=== PATIENT | male | born 1945 | race Caucasian/White ===

== ENCOUNTER → 2017-09-07 09:15 | Outpatient (CLI) | payer MEDICARE, OTHER, SELFPAY ==
--- NOTE | 2017-09-07 09:19 | RAD_ITS ---
STUDY: X-RAY - ESOPHAGUS (BARIUM SWALLOW) WITH FLUOROSCOPY REASON FOR EXAM: Male, 71 years old. 3-4 year history of dysphagia. TECHNIQUE: 18 view(s) of the esophagus were obtained following swallowing of barium. FLUOROSCOPY TIME (if supplied): (0:32) minutes/seconds COMPARISON: None. FINDINGS: There is no demonstrated esophageal foreign body. There is no demonstrated stricture or mucosal abnormality. Normal gastroesophageal junction, without a demonstrated hiatal hernia. The patient ingested a 12 mm tablet of barium without any difficulty. Normal visualized aortic arch and descending thoracic aorta. Calcified left hilar lymph nodes. Normal visualized osseous structures of the thorax. RAD/Esophagus Only IMPRESSION: Normal plain film x-ray examination (barium swallow) of the esophagus. Electronically Signed: Keith Rayo MD at 10:45 EST Tel [phone], Service support ,
== END ==
PROVIDERS: Family Provider Family Medicine; PCP Family Medicine; Visit Provider Family Medicine
DX: R13.10 Dysphagia, unspecified (principal)
CPT/HCPCS: 74220

== ENCOUNTER → 2018-02-26 09:11 | Outpatient (CLI) | payer MEDICARE, OTHER, SELFPAY ==
[2018-02-26 12:00] LABS: Anion Gap 8 (5-15); BUN 31 mg/dL (7-18); BUN/Creat Ratio 20.9 RATIO (10-20); Chloride 109 mmol/L (98-107); Cholesterol 178 mg/dL (200); Creatinine, Serum 1.48 mg/dL (0.70-1.30); EST Glomerular Filtration Rate 50 mL/min (>60); Est Glom Filt Rate - Afr Amer 60 mL/min (>60); Glucose 120 mg/dL (74-106); High Density Lipoprotein 29 mg/dL; Potassium 5.1 mmol/L (3.5-5.1); Sodium Level 141 mmol/L (136-145); Triglycerides 180 mg/dL; Very Low Density Lipoprotein 36 mg/dL (5-40)
[2018-02-26 12:04] LABS: Hemoglobin A1c 7.4 % (4.2-6.3)
== END ==
PROVIDERS: Family Provider Family Medicine; PCP Family Medicine; Visit Provider Family Medicine
DX: E78.5 Hyperlipidemia, unspecified (principal); I10 Essential (primary) hypertension; E11.9 Type 2 diabetes mellitus without complications
CPT/HCPCS: 36415; 80048; 80061; 83036

== ENCOUNTER → 2018-03-11 08:28 | Outpatient (CLI) | payer MEDICARE, OTHER, SELFPAY ==
--- NOTE | 2018-03-11 08:29 | RAD_ITS ---
STUDY: X-RAY - ESOPHAGUS (BARIUM SWALLOW) WITH FLUOROSCOPY REASON FOR EXAM: Male, 72 years old. Dysphagia for liquids. TECHNIQUE: 22 view(s) of the esophagus were obtained following swallowing of barium. FLUOROSCOPY TIME (if supplied): (0:46) minutes/seconds COMPARISON: None. FINDINGS: There is no demonstrated esophageal foreign body. There is concentric narrowing of the distal esophagus at the gastroesophageal junction. The 12 mm tablet of barium is trapped at that site. There is proximal esophageal dilatation. Endoscopy is recommended for further evaluation. There is atherosclerotic calcification of the aortic arch with tortuosity of the descending aorta. Calcification of the mitral valve annulus and hilar lymph nodes. There are diffuse degenerative changes of the visualized thoracic spine. RAD/Esophagus Only IMPRESSION: Concentric narrowing of the distal esophagus at the gastroesophageal junction with trapping of the 12 mm tablet of barium. Endoscopy is recommended for further evaluation. Electronically Signed: Keith Rayo MD at 8:48 EDT Tel [phone], Service support ,
== END ==
PROVIDERS: Family Provider Family Medicine; PCP Family Medicine; Visit Provider Family Medicine
DX: K22.8 Other specified diseases of esophagus (principal); R13.10 Dysphagia, unspecified
CPT/HCPCS: 74220

== ENCOUNTER → 2018-09-05 08:41 | Outpatient (CLI) | payer MEDICARE, OTHER, SELFPAY ==
[2018-09-05 11:22] LABS: Anion Gap 9 (5-15); BUN 38 mg/dL (7-18); BUN/Creat Ratio 24.4 RATIO (10-20); Calcium,Total 9.2 mg/dL (8.5-10.1); Chloride 109 mmol/L (98-107); Cholesterol 203 mg/dL (200); Creatinine, Serum 1.56 mg/dL (0.70-1.30); EST Glomerular Filtration Rate 47 mL/min (>60); Est Glom Filt Rate - Afr Amer 57 mL/min (>60); Glucose 151 mg/dL (74-106); High Density Lipoprotein 30 mg/dL; PSA,Total - Annual Screen 1.14 ng/mL (0.00-4.00); Potassium 4.9 mmol/L (3.5-5.1); Sodium Level 142 mmol/L (136-145); Triglycerides 133 mg/dL; Very Low Density Lipoprotein 27 mg/dL (5-40)
== END ==
PROVIDERS: Family Provider Family Medicine; PCP Family Medicine; Visit Provider Family Medicine
DX: E11.22 Type 2 diabetes mellitus with diabetic chronic kidney disease (principal); N18.3 Chronic kidney disease, stage 3 (moderate); Z12.5 Encounter for screening for malignant neoplasm of prostate
CPT/HCPCS: 36415; 80048; 80061; 83036; 84153; G0103

== ENCOUNTER → 2019-01-02 09:46 | Outpatient (CLI) | payer MEDICARE, OTHER, SELFPAY ==
[2019-01-02 18:39] LABS: Hemoglobin A1c 7.5 % (4.2-6.3)
[2019-01-02 19:03] LABS: Anion Gap 5 (5-15); BUN 33 mg/dL (7-18); BUN/Creat Ratio 22.6 RATIO (10-20); Calcium,Total 9.1 mg/dL (8.5-10.1); Chloride 112 mmol/L (98-107); Cholesterol 128 mg/dL (200); Creatinine, Serum 1.46 mg/dL (0.70-1.30); EST Glomerular Filtration Rate 51 mL/min (>60); Est Glom Filt Rate - Afr Amer 61 mL/min (>60); Glucose 104 mg/dL (74-106); High Density Lipoprotein 30 mg/dL; Potassium 4.7 mmol/L (3.5-5.1); Sodium Level 143 mmol/L (136-145); Triglycerides 133 mg/dL; Very Low Density Lipoprotein 27 mg/dL (5-40)
== END ==
PROVIDERS: Family Provider Family Medicine; PCP Family Medicine; Referring Provider Family Medicine; Visit Provider Family Medicine
DX: I10 Essential (primary) hypertension (principal); E11.9 Type 2 diabetes mellitus without complications; E78.5 Hyperlipidemia, unspecified
CPT/HCPCS: 36415; 80048; 80061; 83036

== ENCOUNTER → 2019-06-23 10:40 | Outpatient (CLI) | payer MEDICARE, OTHER, SELFPAY ==
[2019-06-23 13:12] LABS: Anion Gap 7 (5-15); BUN 25 mg/dL (7-18); BUN/Creat Ratio 19.2 RATIO (10-20); Calcium,Total 9.4 mg/dL (8.5-10.1); Chloride 106 mmol/L (98-107); Cholesterol 154 mg/dL (200); EST Glomerular Filtration Rate 58 mL/min (>60); Est Glom Filt Rate - Afr Amer 70 mL/min (>60); Glucose 125 mg/dL (74-106); High Density Lipoprotein 32 mg/dL; Potassium 5.2 mmol/L (3.5-5.1); Sodium Level 141 mmol/L (136-145); Triglycerides 125 mg/dL; Very Low Density Lipoprotein 25 mg/dL (5-40)
[2019-06-23 13:14] LABS: Hemoglobin A1c 7.4 % (4.2-6.3)
== END ==
PROVIDERS: Family Medicine; Family Provider Family Medicine; PCP Family Medicine; Referring Provider Family Medicine; Visit Provider Family Medicine
DX: I10 Essential (primary) hypertension (principal); E11.9 Type 2 diabetes mellitus without complications; E78.5 Hyperlipidemia, unspecified
CPT/HCPCS: 36415; 80048; 80061; 83036

== ENCOUNTER → 2019-07-17 09:45 | Outpatient (CLI) | payer MEDICARE, OTHER, SELFPAY ==
--- NOTE | 2019-07-17 09:50 | RAD_ITS ---
STUDY: X-RAY - LEFT FOOT CLINICAL: Male, 73 years old. Bruising following a twisting injury. TECHNIQUE: 3 view(s) of the foot. COMPARISON: None. FINDINGS: There is a small plantar calcaneal spur. I suspect a nondisplaced avulsion fracture of the posterior aspect of the navicular bone. Normal metatarsi. Normal metatarsophalangeal joint of the great toe. Normal tibial and fibular sesamoid bones. Normal interphalangeal joint of the great toe. Normal phalanges of the great toe. Normal second through fifth metatarsophalangeal joints. Normal interphalangeal joints and phalanges of the lesser toes. Mild soft tissue swelling. RAD/Foot min 3 Views IMPRESSION: Mild soft tissue swelling. I suspect a nondisplaced avulsion fracture of the superior aspect of the navicular bone. Small plantar spur. Electronically Signed: Keith Rayo, at 11:41 EST , Service support ,
--- NOTE | 2019-07-17 09:50 | RAD_ITS ---
STUDY: X-RAY - LEFT ANKLE REASON FOR EXAM: Male, 73 years old. Pain and swelling following injury. TECHNIQUE: 3 view(s) of the ankle. COMPARISON: None. FINDINGS: Normal visualized distal tibia and fibula. Normal medial and lateral malleoli. Normal tibiotalar articulation and ankle mortise. Small plantar spur. The visualized subtalar, talonavicular, calcaneocuboid and tarsal articulations are normal. Mild soft tissue swelling. RAD/Ankle min 3 Views IMPRESSION: Mild soft tissue swelling. Small plantar spur. Electronically Signed: Keith Rayo, at 11:38 EST , Service support ,
== END ==
PROVIDERS: Family Provider Family Medicine; PCP Family Medicine; Referring Provider Family Medicine; Visit Provider Family Medicine
DX: S99.912A Unspecified injury of left ankle, initial encounter (principal)
CPT/HCPCS: 73610; 73630

== ENCOUNTER → 2020-01-27 09:09 | Outpatient (CLI) | payer MEDICARE, OTHER, SELFPAY ==
[2020-01-27 10:28] LABS: Hemoglobin A1c 6.8 % (3.8-5.6)
[2020-01-27 10:37] LABS: Anion Gap 8 (5-15); BUN 39 mg/dL (7-18); BUN/Creat Ratio 29.1 RATIO (10-20); Calcium,Total 9.3 mg/dL (8.5-10.1); Chloride 111 mmol/L (98-107); Creatinine, Serum 1.34 mg/dL (0.70-1.30); EST Glomerular Filtration Rate 56 mL/min (>60); Est Glom Filt Rate - Afr Amer 67 mL/min (>60); Glucose 118 mg/dL (74-106); Potassium 5.5 mmol/L (3.5-5.1); Sodium Level 142 mmol/L (136-145)
[2020-01-27 10:46] LABS: Microalbumin:Creatinine Ratio 5.9 mg/g CRE (<30 mg/g CRE)
== END ==
PROVIDERS: PCP Family Medicine; Referring Provider Family Medicine; Visit Provider Family Medicine
DX: E11.9 Type 2 diabetes mellitus without complications (principal)
CPT/HCPCS: 36415; 80048; 82043; 82570; 83036

== ENCOUNTER → 2020-06-10 08:20 | Outpatient (CLI) | payer MEDICARE, OTHER, SELFPAY ==
[2020-06-10 10:20] LABS: AST(SGOT) 18 U/L (15-37); Alanine Aminotransfer ALT/SGPT 26 U/L (16-61); Albumin, Serum 3.7 g/dL (3.2-5.0); Alkaline Phosphatase 72 U/L (45-117); Anion Gap 7 (5-15); BUN 32 mg/dL (7-18); BUN/Creat Ratio 21.2 RATIO (10-20); Chloride 109 mmol/L (98-107); Cholesterol 141 mg/dL (200); Creatinine, Serum 1.51 mg/dL (0.70-1.30); EST Glomerular Filtration Rate 48 mL/min (>60); Est Glom Filt Rate - Afr Amer 59 mL/min (>60); Globulin 3.6 g/dL (2.2-4.2); Glucose 135 mg/dL (74-106); Hemoglobin A1c 6.6 % (3.8-5.6); High Density Lipoprotein 32 mg/dL; PSA,Total - Annual Screen 1.19 ng/mL (0.00-4.00); Potassium 4.9 mmol/L (3.5-5.1); Protein, Total 7.3 g/dL (6.4-8.2); Sodium Level 141 mmol/L (136-145); Triglycerides 150 mg/dL; Very Low Density Lipoprotein 30 mg/dL (5-40)
[2020-06-10 10:23] LABS: Vitamin B12 304 pg/mL (211-911)
== END ==
PROVIDERS: PCP Family Medicine; Referring Provider Family Medicine; Visit Provider Family Medicine
DX: I10 Essential (primary) hypertension (principal); E11.21 Type 2 diabetes mellitus with diabetic nephropathy; E11.40 Type 2 diabetes mellitus with diabetic neuropathy, unspecified; Z12.5 Encounter for screening for malignant neoplasm of prostate
CPT/HCPCS: 36415; 80053; 80061; 82607; 83036; 84153; G0103

== ENCOUNTER → 2021-04-07 16:50 | Outpatient (CLI) | payer MEDICARE, OTHER, SELFPAY | PROVIDERS: PCP Family Medicine | DX: Z20.822 Contact with and (suspected) exposure to COVID-19 (principal) | CPT/HCPCS: 87635; U0005; U0003 ==

== ENCOUNTER → 2021-06-28 08:55 | Outpatient (CLI) | payer MEDICARE, OTHER, SELFPAY ==
[2021-06-28 09:55] LABS: Absolute Neutrophil Count 3.1 X10^3/uL (2.0-7.7); Basophil# 0.03 X10^3/uL; Basophil% 0.6 % (0-1); Eosinophil# 0.14 X10^3/uL; Hematocrit 39.1 % (40-54); Hemoglobin 12.3 g/dL (13.0-16.5); Lymphocyte % 21.3 % (19-41); Mean Corp Hgb Conc 31.5 g/dL (32-36); Mean Corpuscular Hgb 27.2 pg (27.0-32.0); Mean Corpuscular Volume 86.5 fL (80-94); Mean Platelet Vol. 10.5 fl (6.2-12.0); Monocyte# 0.44 X10^3/uL; Monocyte% 9.4 % (0-10); NRBC Flagged by Analyzer 0 % (0-5); Neutrophil # 3.06 X10^3/uL (2.7-7.7); Neutrophil % 65.1 % (47-70); Platelet Count 212 K/mm3 (150-450); RBC Distribution Width CV 14.4 % (11.6-14.6); RBC Distribution Width SD 45.7 fl (35.1-43.9); Red Blood Count 4.52 M/mm3 (4.6-6.2); White Blood Count 4.7 K/mm3 (4.4-11.0)
[2021-06-28 10:14] LABS: Microalbumin,Random Urine 6.5 mg/L (NO RANGE EST.); Microalbumin:Creatinine Ratio 6.3 mg/g CRE (<30 mg/g CRE)
[2021-06-28 10:16] LABS: Hemoglobin A1c 6.6 % (3.8-5.6)
[2021-06-28 10:19] LABS: Vitamin B12 258 pg/mL (211-911)
[2021-06-28 10:35] LABS: ALB/GLOB Ratio 0.8 RATIO (0.9-2.4); AST(SGOT) 15 U/L (15-37); Alanine Aminotransfer ALT/SGPT 23 U/L (16-61); Albumin, Serum 3.2 g/dL (3.2-5.0); Alkaline Phosphatase 66 U/L (45-117); Anion Gap 4 (5-15); BUN 33 mg/dL (7-18); BUN/Creat Ratio 24.4 RATIO (10-20); Calcium,Total 8.7 mg/dL (8.5-10.1); Chloride 112 mmol/L (98-107); Cholesterol 150 mg/dL (200); Creatinine, Serum 1.35 mg/dL (0.70-1.30); EST Glomerular Filtration Rate 55 mL/min (>60); Est Glom Filt Rate - Afr Amer 67 mL/min (>60); Glucose 129 mg/dL (74-106); High Density Lipoprotein 31 mg/dL; PSA,Total - Annual Screen 1.27 ng/mL (0.00-4.00); Potassium 4.7 mmol/L (3.5-5.1); Protein, Total 7.2 g/dL (6.4-8.2); Sodium Level 141 mmol/L (136-145); Thyroid Stim Hormone (TSH) 2.41 uIU/mL (0.358-3.74); Triglycerides 78 mg/dL; Very Low Density Lipoprotein 16 mg/dL (5-40)
== END ==
PROVIDERS: PCP Nurse Practitioner Family; Referring Provider Nurse Practitioner Family; Visit Provider Nurse Practitioner Family
DX: E11.40 Type 2 diabetes mellitus with diabetic neuropathy, unspecified (principal); E11.21 Type 2 diabetes mellitus with diabetic nephropathy; Z12.5 Encounter for screening for malignant neoplasm of prostate
CPT/HCPCS: 36415; 80053; 80061; 82043; 82570; 82607; 83036; 84153; 84443; 85025; G0103

== ENCOUNTER 2021-12-27 11:41 | Inpatient (IN) | payer MEDICARE, OTHER, SELFPAY ==
[2021-12-27] VITALS (8 sets, daily range): BP systolic 136–158; BP diastolic 57–69; PULSE 62–82; RESP 12–18; TEMP 36.5–37.1; O2SAT 96–99; BMI 26.7; BMI 27.2
--- NOTE | 2021-12-27 12:19 | EKG12_ITS ---
Test Reason : ABNL LABS Blood Pressure : / mmHG Vent. Rate : 060 BPM Atrial Rate : 060 BPM P-R Int : 276 ms QRS Dur : 100 ms QT Int : 368 ms P-R-T Axes : 031 -41 015 degrees QTc Int : 368 ms Sinus rhythm with sinus arrhythmia with 1st degree A-V block Left axis deviation Inferior infarct , age undetermined Abnormal ECG Confirmed by CONNIE CHURCHILL, MIKI ([id number]), editor trade journal RAOUL RACHEL ([id number]) on 12/28/2021 10:54:04 AM Referred By: MARIAH Confirmed By:MIKI ROSALES MD
--- NOTE | 2021-12-27 12:25 | EX.ED.DYSGE1 ---
HPI History of Present Illness Chief Complaint: Abn Labs Informant: patient Onset/Context/Timing Onset: Today Narrative Narrative: Patient presents secondary to abnormal labs. Patient went to get routine lab work drawn for PCPs appointment next week. He received a phone call that his potassium was elevated and he should go to the emergency room. He denies any complaint at this time. does state he had some nausea and vomiting last week but that seems to be resolved. On review of records BMP obtained reveals a potassium of 6.5. His creatinine is bumped slightly to 1.85 with a baseline around 1.3-1.4. [facility] Medical History Diabetes GERD (gastroesophageal reflux disease) HLD (hyperlipidemia) HTN (hypertension) Home Medications amlodipine 12/27/21 [History Last Taken Unknown] gabapentin 12/27/21 [History Last Taken Unknown] glimepiride mg 12/27/21 [History Last Taken Unknown] isosorbide dinitrate mg 12/27/21 [History Last Taken Unknown] linagliptin-metformin [Jentadueto] tab 12/27/21 [History Last Taken Unknown] lisinopril 12/27/21 [History Last Taken Unknown] omeprazole 12/27/21 [History Last Taken Unknown] Allergy/AdvReac Type Severity Reaction Status Date / Time No Known Allergies Allergy Verified 12/27/21 11:44 Social History Smoking Status: Never smoker ROS ROS ED Constitutional Constitutional ED: Denies chills or fever(s) Eyes Eyes: Denies change in vision ENT ENT ED: Denies sore throat Cardiovascular Cardiovascular: Denies chest pain Respiratory/Chest Respiratory/Chest: Denies cough or dyspnea Gastrointestinal Gastrointestinal: Denies abdominal pain, diarrhea, nausea or vomiting Genitourinary Genitourinary ED: Denies dysuria Musculoskeletal Musculoskeletal: Denies back pain Integumentary Denies rash Neurologic Neurologic: Denies headache(s) or weakness Allergic/Immunologic Allergic/Immunologic ED: Denies urticaria EXAM Physical Exam Const Vital Signs: 12/27/21 11:42 12/27/21 12:23 Temperature 97.9 F Temperature Source Temporal Pulse Rate 64 Respiratory Rate 18 Respiratory Effort Normal Non-Labored Respiratory Pattern Normal Blood Pressure 136/65 H Blood Pressure Mean 88 Pulse Ox 99 Oxygen Delivery Method Room Air Positive well nourished and well developed General Appearance ED: well developed HEENT Reports normocephalic and head/scalp atraumatic Eyes PERRL and EOMs intact bilaterally Neck supple Chest Wall inspection of chest normal and palpation of chest normal Resp normal respiratory effort and clear to auscultation bilaterally Cardio regular rate and regular rhythm GI normal to inspection, nondistended, normoactive bowel sounds Palpation: soft Back/Spine no CVA tenderness Extremity normal to inspection Neuro oriented x3 and no sensory deficits noted Sensorium / Orientation: alert Motor Exam: strength 5/5 throughout Psych mental status grossly normal Skin no rashes or lesions noted MDM MDM MDM Narrative Medical decision making narrative: Patient placed on bus monitor. EKG and lab work obtained. 1 L IV fluids ordered. Lab Data Labs: Laboratory Results - last 24 hr 12/27/21 12/27/21 12:15 12:15 WBC 5.8 RBC 4.50 L Hgb 12.9 L Hct 40.5 MCV 90.0 MCH 28.7 MCHC 31.9 L RDW Std Deviation 48.1 H RDW Coeff of Tim 14.6 Plt Count 164 MPV 9.9 Immature Gran % (Auto) 0.300 Neut % (Auto) 76.8 H Lymph % (Auto) 14.2 L Allen % (Auto) 5.8 Eos % (Auto) 2.2 Baso % (Auto) 0.7 Absolute Neuts (auto) 4.5 Absolute Lymphs (auto) 0.83 Nucleated RBC % 0 Sodium 139 Potassium 7.1 H* Chloride 116 H Carbon Dioxide 20.0 L Anion Gap 3 L BUN 48 H Creatinine 1.80 H Estim Creat Clear Calc 38.35 Est GFR (MDRD) Af Amer 48 L Est GFR (MDRD) Non-Af 39 L BUN/Creatinine Ratio 26.7 H Glucose 193 H Calcium 9.0 EKG Initial EKG: Attestation: I personally reviewed and interpreted this EKG as follows: Interpretation: Sinus Rhythm (Sinus at 60 with no acute ischemia. Slight peaking of T waves noted in V2, V3, V4.) Treatment and Re-Evaluation Narrative: Lab work reviewed and does confirm elevated potassium at 7.1. BUN is 48 and creatinine is 1.8. Patient is ordered calcium, albuterol, insulin, glucose. I will speak with hospitalist regarding admission. Discharge Plan Dx/Rx/DC Orders Clinical Impression: Hyperkalemia Disposition Disposition: Acute Care Hospital [facility]
[2021-12-27] MEDS: 0.9% Normal Saline 1,000 ML 1000 ML IV (12:28)
[2021-12-27 12:35] LABS: Absolute Lymphocyte Count 0.83 X10^3/uL (0.83-4.51); Absolute Neutrophil Count 4.5 X10^3/uL (2.0-7.7); Basophil# 0.04 X10^3/uL; Basophil% 0.7 % (0-1); Eosinophil# 0.13 X10^3/uL; Eosinophils% 2.2 % (0-5); Hematocrit 40.5 % (40-54); Hemoglobin 12.9 g/dL (13.0-16.5); Lymphocyte # 0.83 X10^3/ul (0.83-4.51); Lymphocyte % 14.2 % (19-41); Mean Corp Hgb Conc 31.9 g/dL (32-36); Mean Corpuscular Hgb 28.7 pg (27.0-32.0); Mean Platelet Vol. 9.9 fl (6.2-12.0); Monocyte# 0.34 X10^3/uL; Monocyte% 5.8 % (0-10); NRBC Flagged by Analyzer 0 % (0-5); Neutrophil # 4.48 X10^3/uL (2.7-7.7); Neutrophil % 76.8 % (47-70); Platelet Count 164 K/mm3 (150-450); RBC Distribution Width CV 14.6 % (11.6-14.6); RBC Distribution Width SD 48.1 fl (35.1-43.9); White Blood Count 5.8 K/mm3 (4.4-11.0)
[2021-12-27 12:53] LABS: Anion Gap 3 (5-15); BUN 48 mg/dL (7-18); BUN/Creat Ratio 26.7 RATIO (10-20); Chloride 116 mmol/L (98-107); EST Glomerular Filtration Rate 39 mL/min (>60); Est Glom Filt Rate - Afr Amer 48 mL/min (>60); Estimated Creatinine Clearance 38.35 ml/min; Glucose 193 mg/dL (74-106); Potassium 7.1 mmol/L (3.5-5.1); Sodium Level 139 mmol/L (136-145)
--- NOTE | 2021-12-27 13:04 | PCM.HP.STD ---
HPI - General General Date of Admission: 12/27/21 Date of Service: 12/27/21 Chief Complaint: Referred for abnormal labs, elevated potassium. HPI Narrative The patient is a 76 y/o M w/ PMHx: CKD stage III unclear subtype, Chronic normocytic anemia, HTN, HLD, GERD, Diabetes mellitus type II who presents to the [facility] ED on 12/27/21 with history of recent outpatient PCP initiated labs with call per his physician to note his potassium was significantly elevated and despite symptoms given the elevation recommended ED evaluation immediately. Patient notes some associated nausea and emesis the week prior however it was only on a single day and once with history of notable GERD secondary to esophageal anatomy variant and is since resolved. Work-up in the ED included T97.9, heart rate 64, BP 136/65, respiratory rate 18, 99% on room air, CBC with WC 5.8, hemoglobin 12.9, platelet 164 without marked shift, BMP with potassium 7.1, chloride 116, carbon oxide 20, BUN/creatinine 48/1.80, glucose 193. In the ED patient administered albuterol, calcium gluconate, dextrose amp, insulin 10 units IV x1 as well as normal saline bolus and continued maintenance IV fluids. [facility] Medical History Diabetes GERD (gastroesophageal reflux disease) HLD (hyperlipidemia) HTN (hypertension) Home Medications amlodipine 10 mg PO DAILY 12/27/21 [History Last Taken 12/26/21] gabapentin 800 mg PO QHS 12/27/21 [History Last Taken 12/26/21] glimepiride 2 mg PO DAILY 12/27/21 [History Last Taken 12/27/21] isosorbide dinitrate 5 mg PO BID 12/27/21 [History Last Taken 12/27/21] lisinopril 30 mg PO DAILY 12/27/21 [History Last Taken 12/26/21] omeprazole 40 mg PO DAILY 12/27/21 [History Last Taken 12/27/21] Allergy/AdvReac Type Severity Reaction Status Date / Time No Known Allergies Allergy Verified 12/27/21 11:44 Family History (Updated 12/27/21 @ 15:[address] Senia Rodriguez MD) Mother Heart disease Father Cancer Pancreatic cancer, passed age 76. Surgical History (Updated 12/27/21 @ 15:[address] Senia Rodriguez MD) History of back surgery Status post total replacement of left shoulder Social History (Updated 12/27/21 @ 15:[address] Senia Rodriguez MD) household members: spouse Smoking Status: Never smoker alcohol intake: never substance use type: does not use ROS ROS Narrative Admission Review of Systems: CONSTITUTIONAL: No weight loss, fever, chills, + weakness or fatigue. HEENT: Eyes: No visual loss, blurred vision, double vision or yellow sclerae. Ears, Nose, Throat: No hearing loss, sneezing, congestion, runny nose or sore throat. SKIN: No rash or itching, lesions, wounds. CARDIOVASCULAR: No chest pain, chest pressure or chest discomfort, palpitations, edema, orthopnea, syncopal events. RESPIRATORY: No shortness of breath, cough or sputum, wheezing, hemoptysis. GASTROINTESTINAL: + Single episode N/V, anorexia, since resolved. No diarrhea, abdominal pain, melena, BRBPR. GENITOURINARY: No dysuria, frequency, urgency or retention. NEUROLOGICAL: No headache, dizziness, syncope, paralysis, ataxia, numbness or tingling in the extremities, focal weakness, change in bowel or bladder control, seizure. MUSCULOSKELETAL: + muscle, back pain, joint pain or stiffness. HEMATOLOGIC: + anemia, bleeding or bruising. LYMPHATICS: No enlarged nodes. No history of splenectomy. PSYCHIATRIC: No history of depression or anxiety. ENDOCRINOLOGIC: No reports of sweating, cold or heat intolerance. No polyuria or polydipsia. ALLERGIES: No history of asthma, hives, eczema or rhinitis. Vital Signs Vital Signs Vital Signs: 12/27/21 11:42 12/27/21 12:23 Temperature 97.9 F Temperature Source Temporal Pulse Rate 64 Respiratory Rate 18 Respiratory Effort Normal Non-Labored Respiratory Pattern Normal Blood Pressure 136/65 H Blood Pressure Mean 88 Pulse Ox 99 Oxygen Delivery Method Room Air Weight Weight: 192 lb Body Mass Index (BMI) 26.7 Physical Exam Narrative Physical Examination: General: Awake, alert, oriented x 3 and cooperative, seated upright in the ED bed in no apparent distress. Skin: Normal color, normal turgor, no icterus, no cyanosis. HEENT: AT/NC, EOMI, PERRLA, MMM, no carotid bruits or JVD noted. Lungs: CTA bilaterally, moderate effort, no rales, ronchi or wheezing. Heart: Currently regular rate and rhythm; no gallop, rub audible. Abdomen: Soft, overweight, NTTP, ND, mildly hyperactive BS, no HSM. Extremities: No cyanosis, clubbing, or edema. Neurological: Patient awake, alert, oriented as noted, cognitive function intact; pupils equally reactive to light and accommodation, cranial nerves II-XII grossly normal, moving all 4 extremities, no focal deficits, strength preserved. Psychiatric: Affect appears normal, no acute evidence of depressive or anxiety feelings. Results Lab / Micro Data Result Diagrams: 12/27/21 12:15 12/27/21 12:15 Labs: Laboratory Results - last 24 hr 12/27/21 12:15: WBC 5.8, RBC 4.50 L, Hgb 12.9 L, Hct 40.5, MCV 90.0, MCH 28.7, MCHC 31.9 L, RDW Std Deviation 48.1 H, RDW Coeff of Tim 14.6, Plt Count 164, MPV 9.9, Immature Gran % (Auto) 0.300, Neut % (Auto) 76.8 H, Lymph % (Auto) 14.2 L, Alpine % (Auto) 5.8, Eos % (Auto) 2.2, Baso % (Auto) 0.7, Absolute Neuts (auto) 4.5, Absolute Lymphs (auto) 0.83, Nucleated RBC % 0 12/27/21 12:15: Sodium 139, Potassium 7.1 H*, Chloride 116 H, Carbon Dioxide 20.0 L, Anion Gap 3 L, BUN 48 H, Creatinine 1.80 H, Estim Creat Clear Calc 38.35, Est GFR (MDRD) Af Amer 48 L, Est GFR (MDRD) Non-Af 39 L, BUN/Creatinine Ratio 26.7 H, Glucose 193 H, Calcium 9.0 Assessment & Plan Assessment/Plan (1) Hyperkalemia: PLAN: The patient is a 76 y/o M w/ PMHx: CKD stage III unclear subtype, Chronic normocytic anemia, HTN, HLD, GERD, Diabetes mellitus type II who presents to the [facility] ED on 12/27/21 with history of recent outpatient PCP initiated labs with call per his physician to note his potassium was significantly elevated and despite symptoms given the elevation recommended ED evaluation immediately. #1. Hyperkalemia: Admission potassium 7.1, administered albuterol, calcium gluconate, dextrose amp, insulin 10 units IV x1 as well as normal saline bolus and continued maintenance IV fluids, given significant level will admit to PCU a stepdown until potassium level appropriate then may transition to PCU status only, will administer Kayexalate upon admission additionally, will serially trend BMP to assure level is decreasing, will discontinue DANITA inhibitor which was discussed with patient, as needed IV hydralazine in interim, repeat EKGs as needed. #2. Acute renal insufficiency on CKD stage III, unclear subtype: Admission BUN/creatinine 48/1.80, baseline creatinine prior appears 1.3-1.5 primarily, continue treatment as noted, repeat BMP in a.m., if worsening hold nephrotoxic medications. #3. Hypertension: Continue home regimen including isosorbide, amlodipine with hold parameters, PRN hydralazine. Given presentation holding lisinopril. #4. Hyperlipidemia: Not on statin therapy, defer to outpatient. #5. Diabetes mellitus type II: Hold oral home regimen, ADA diet, accu checks w/ ISS. #6. Chronic normocytic anemia: Admission hemoglobin 12.9, baseline appears 12, stable, trend. #7. GERD: We will continue patient on PPI #8. DVT prophylaxis: SCDs, Lovenox. Charges/Coding Visit Charges Inpatient E&M: 21590 Init Hosp L3
--- NOTE | 2021-12-27 13:20 | NURSING ---
PCU [facility]
[2021-12-27] MEDS: Dextrose 10%-Water 250 ML 999 ML IV (13:23)
[2021-12-27] MEDS: Albuterol 2.5 MG/3 ML VIAL.NEB. INHALATION ×4 (13:32)
[2021-12-27] MEDS: Insulin Lispro 10 UNIT in Syringe 0 ML 6 UNIT IV (13:40)
[2021-12-27] MEDS: 0.9% Normal Saline 1,000 ML 200 ML IV (13:41)
[2021-12-27] MEDS: Calcium Gluconate IV 3 GM in Syringe 1 EACH IV (13:41)
[2021-12-27] MEDS: 0.9% Normal Saline 1,000 ML 125 ML IV ×2 (15:17→23:17)
[2021-12-27] MEDS: Sodium Polystyrene Sulfonate 15 GM/60 ML UDC 30 GM PO ×2 (15:32→22:14)
[2021-12-27 16:32] LABS: Anion Gap 5 (5-15); BUN 43 mg/dL (7-18); BUN/Creat Ratio 25.9 RATIO (10-20); Calcium,Total 9.5 mg/dL (8.5-10.1); Chloride 118 mmol/L (98-107); Creatinine, Serum 1.66 mg/dL (0.70-1.30); EST Glomerular Filtration Rate 43 mL/min (>60); Est Glom Filt Rate - Afr Amer 52 mL/min (>60); Estimated Creatinine Clearance 41.58 ml/min; Glucose 141 mg/dL (74-106); Potassium 4.9 mmol/L (3.5-5.1); Sodium Level 142 mmol/L (136-145)
[2021-12-27 16:46] LABS: Bedside Glucose 149 mg/dL (74-106)
[2021-12-27 19:14] LABS: Anion Gap 6 (5-15); BUN 39 mg/dL (7-18); BUN/Creat Ratio 26.2 RATIO (10-20); Calcium,Total 9.4 mg/dL (8.5-10.1); Chloride 117 mmol/L (98-107); Creatinine, Serum 1.49 mg/dL (0.70-1.30); EST Glomerular Filtration Rate 49 mL/min (>60); Est Glom Filt Rate - Afr Amer 59 mL/min (>60); Estimated Creatinine Clearance 46.33 ml/min; Glucose 114 mg/dL (74-106); Potassium 5.4 mmol/L (3.5-5.1); Sodium Level 143 mmol/L (136-145)
[2021-12-27] MEDS: Ibuprofen 600 MG Tablet PO (22:17)
[2021-12-27] MEDS: Gabapentin 800 MG Tablet PO (22:18)
[2021-12-27 23:25] LABS: Bedside Glucose 146 mg/dL (74-106)
[2021-12-28] VITALS (7 sets, daily range): BP systolic 125–157; BP diastolic 64–76; PULSE 68–81; RESP 16–18; TEMP 36.8; O2SAT 96–98
[2021-12-28 06:41] LABS: Absolute Lymphocyte Count 0.86 X10^3/uL (0.83-4.51); Absolute Neutrophil Count 3.2 X10^3/uL (2.0-7.7); Basophil# 0.03 X10^3/uL; Basophil% 0.6 % (0-1); Eosinophil# 0.09 X10^3/uL; Eosinophils% 1.9 % (0-5); Hemoglobin 10.8 g/dL (13.0-16.5); Lymphocyte # 0.86 X10^3/ul (0.83-4.51); Lymphocyte % 18.5 % (19-41); Mean Corp Hgb Conc 31.8 g/dL (32-36); Mean Corpuscular Hgb 28.7 pg (27.0-32.0); Mean Corpuscular Volume 90.4 fL (80-94); Mean Platelet Vol. 10.7 fl (6.2-12.0); Monocyte# 0.41 X10^3/uL; Monocyte% 8.8 % (0-10); NRBC Flagged by Analyzer 0 % (0-5); Neutrophil # 3.24 X10^3/uL (2.7-7.7); Neutrophil % 69.8 % (47-70); Platelet Count 132 K/mm3 (150-450); RBC Distribution Width CV 14.4 % (11.6-14.6); RBC Distribution Width SD 47.8 fl (35.1-43.9); Red Blood Count 3.76 M/mm3 (4.6-6.2); White Blood Count 4.7 K/mm3 (4.4-11.0)
[2021-12-28] MEDS: 0.9% Normal Saline 1,000 ML 125 ML IV (06:45)
[2021-12-28 06:46] LABS: Bedside Glucose 132 mg/dL (74-106)
[2021-12-28 07:12] LABS: ALB/GLOB Ratio 1.1 RATIO (0.9-2.4); AST(SGOT) 11 U/L (15-37); Alanine Aminotransfer ALT/SGPT 20 U/L (16-61); Albumin, Serum 2.9 g/dL (3.2-5.0); Alkaline Phosphatase 53 U/L (45-117); Anion Gap 5 (5-15); BUN 30 mg/dL (7-18); BUN/Creat Ratio 24.4 RATIO (10-20); Calcium,Total 8.3 mg/dL (8.5-10.1); Chloride 117 mmol/L (98-107); Creatinine, Serum 1.23 mg/dL (0.70-1.30); EST Glomerular Filtration Rate 61 mL/min (>60); Est Glom Filt Rate - Afr Amer 74 mL/min (>60); Estimated Creatinine Clearance 56.12 ml/min; Globulin 2.7 g/dL (2.2-4.2); Glucose 155 mg/dL (74-106); Potassium 5.2 mmol/L (3.5-5.1); Protein, Total 5.6 g/dL (6.4-8.2); Sodium Level 144 mmol/L (136-145)
[2021-12-28] MEDS: amLODIPine 10 MG Tablet PO (08:17)
[2021-12-28] MEDS: Isosorbide DN 10 MG Tablet 5 MG PO (08:17)
[2021-12-28] MEDS: Enoxaparin 30 MG/0.3 ML Syringe SC (08:17)
[2021-12-28] MEDS: Pantoprazole Sodium 40 MG Tablet PO (08:17)
--- NOTE | 2021-12-28 10:43 | PCM.DC ---
Discharge Instructions Diet Discharge Diet: No restrictions Activity Discharge Activity: Return to Normal Activity Weight Bearing Status: Weight bearing as tolerated Dressing / Incision Call your doctor if you observe: Fever of 101 or Higher, Numbness or Tingling, Shortness of breath, Dizziness, Chest pain, Increased palpitations (irregular heartbeat) and Calf discomfort Follow Up Care Please Follow Up With: Primary care provider When: Within the next two weeks. Test Results: Test results from this visit will be discussed in further detail at your follow-up appointment, if applicable. Discharge Plan Admission Admit Date/Time: 12/27/21 13:13 Primary Reason for Your Visit: Abnormal labs Attending Provider: Kike Kang Primary Care Provider: Juan Gomes Consulting Providers: Senia Rodriguez Discharge Orders/Prescriptions Prescriptions: Continued omeprazole 40 mg capsule,delayed release(DR/EC) 40 mg PO DAILY RF: 0 gabapentin 800 mg tablet 800 mg PO QHS RF: 0 amlodipine 10 mg tablet 10 mg PO DAILY RF: 0 glimepiride 4 mg tablet 2 mg PO DAILY RF: 0 isosorbide dinitrate 5 mg tablet 5 mg PO BID RF: 0 Excedrin Extra Strength 250-250-65 mg Tablet 2 tab PO DAILY RF: 0 Held lisinopril 30 mg tablet 30 mg PO DAILY RF: 0 Hold Instructions: Hold until instructed to resume by your primary care provider. ibuprofen 200 mg Capsule 400 mg PO DINNER RF: 0 Hold Instructions: Hold until instructed otherwise by your primary care provider. Can substitute with Tyelenol. Referrals / Follow Up: Juan Gomes MD [Primary Care Provider] - See Referral Note (Proceed to your scheduled appointment with Dr. Gomes on Sunday12/30/21. ) Disposition Disposition (needs filled in before D/C Order can be placed): Home, Self Care
--- NOTE | 2021-12-28 10:48 | PCM.DC.SUM ---
Documented by User: Santana GARCIA 12/28/21 13:17 Providers Date of Admission: 12/27/21 Date of Discharge: 12/28/21 Primary Care Physician: Dr. Juan Gomes MD Reason For Visit: HYPERKALEMIA Diagnosis Discharge Diagnosis (1) Hyperkalemia: Status: Acute Code(s): E87.5 - Hyperkalemia Medications at Discharge Home Medications Excedrin Extra Strength 2 tab PO DAILY 12/27/21 amlodipine 10 mg PO DAILY 12/27/21 gabapentin 800 mg PO QHS 12/27/21 glimepiride 2 mg PO DAILY 12/27/21 isosorbide dinitrate 5 mg PO BID 12/27/21 omeprazole 40 mg PO DAILY 12/27/21 Hospital Course Summary of Care Provided Minutes Spent on Discharge: 20 Hospital Course: Patient is a 76-year-old male who was admitted to [facility] on 12/27/2021 for evaluation management of hyperkalemia noted on his previous PCP appointment labs. Potassium at admission was 7.1, patient was treated with albuterol calcium gluconate, dextrose amp, insulin and IV fluids and monitored overnight. Repeat calcium showed a steady trending downward, on day of discharge potassium was 5.2. Initial assessment of patient anticipated that patient would require a stay in the hospital greater than 2 midnights. This was not the case as calcium corrected quicker than expected and patient was stable enough for discharge after 1 evening in the hospital. We will hold patient's DANITA inhibitor and NSAID until he can follow-up with his primary care provider. Patient already has established primary care provider appointment on 12/30/2021, patient to proceed to appointment as scheduled for any additional work-up. All other home medications were continued. Patient seen by Santana Braun PA-C, under the supervision of Dr. Kang. Physical Exam Narrative Patient is a 76-year-old male comfortably resting in bed, alert and orient x3. Patient denies development of any symptoms overnight. Does not appear in acute distress. Const alert, oriented x3 and no apparent distress HEENT normocephalic, head/scalp atraumatic and hearing grossly normal bilaterally Eyes PERRL, EOMs intact bilaterally and conjunctivae normal Neck no lymphadenopathy, supple and no JVD Resp normal respiratory effort, no retractions and no use of accessory muscles Cardio regular rate, regular rhythm and no JVD GI normal to inspection, nondistended, normoactive bowel sounds and soft to palpation Extremity full ROM and no clubbing, cyanosis or edema Skin no rashes or lesions noted, no wounds and skin turgor normal Neuro CN's II-XII intact bilaterally Psych affect normal Weight / BMI Weight Weight: 195 lb 8.8 oz Body Mass Index (BMI) 27.2 ABG / Lab / Microbiology Data Result Diagrams: 12/28/21 05:25 12/28/21 05:25 Laboratory: Laboratory Results - last 24 hr 12/27/21 12:15: WBC 5.8, RBC 4.50 L, Hgb 12.9 L, Hct 40.5, MCV 90.0, MCH 28.7, MCHC 31.9 L, RDW Std Deviation 48.1 H, RDW Coeff of Tim 14.6, Plt Count 164, MPV 9.9, Immature Gran % (Auto) 0.300, Neut % (Auto) 76.8 H, Lymph % (Auto) 14.2 L, Ponce % (Auto) 5.8, Eos % (Auto) 2.2, Baso % (Auto) 0.7, Absolute Neuts (auto) 4.5, Absolute Lymphs (auto) 0.83, Nucleated RBC % 0 12/27/21 12:15: Sodium 139, Potassium 7.1 H*, Chloride 116 H, Carbon Dioxide 20.0 L, Anion Gap 3 L, BUN 48 H, Creatinine 1.80 H, Estim Creat Clear Calc 38.35, Est GFR (MDRD) Af Amer 48 L, Est GFR (MDRD) Non-Af 39 L, BUN/Creatinine Ratio 26.7 H, Glucose 193 H, Calcium 9.0 12/27/21 14:45: Sodium 142, Potassium 4.9, Chloride 118 H, Carbon Dioxide 19.0 L, Anion Gap 5, BUN 43 H, Creatinine 1.66 H, Estim Creat Clear Calc 41.58, Est GFR (MDRD) Af Amer 52 L, Est GFR (MDRD) Non-Af 43 L, BUN/Creatinine Ratio 25.9 H, Glucose 141 H, Calcium 9.5 12/27/21 16:37: POC Glucose 149 H 12/27/21 18:45: Sodium 143, Potassium 5.4 H, Chloride 117 H, Carbon Dioxide 20.0 L, Anion Gap 6, BUN 39 H, Creatinine 1.49 H, Estim Creat Clear Calc 46.33, Est GFR (MDRD) Af Amer 59 L, Est GFR (MDRD) Non-Af 49 L, BUN/Creatinine Ratio 26.2 H, Glucose 114 H, Calcium 9.4 12/27/21 22:22: POC Glucose 146 H 12/28/21 05:25: WBC 4.7, RBC 3.76 L, Hgb 10.8 L, Hct 34.0 L, MCV 90.4, MCH 28.7, MCHC 31.8 L, RDW Std Deviation 47.8 H, RDW Coeff of Tim 14.4, Plt Count 132 L, MPV 10.7, Immature Gran % (Auto) 0.400, Neut % (Auto) 69.8, Lymph % (Auto) 18.5 L, Ponce % (Auto) 8.8, Eos % (Auto) 1.9, Baso % (Auto) 0.6, Absolute Neuts (auto) 3.2, Absolute Lymphs (auto) 0.86, Nucleated RBC % 0 12/28/21 05:25: Sodium 144, Potassium 5.2 H, Chloride 117 H, Carbon Dioxide 22.0, Anion Gap 5, BUN 30 H, Creatinine 1.23, Estim Creat Clear Calc 56.12, Est GFR (MDRD) Af Amer 74, Est GFR (MDRD) Non-Af 61, BUN/Creatinine Ratio 24.4 H, Glucose 155 H, Calcium 8.3 L, Total Bilirubin 0.20, AST 11 L, ALT 20, Alkaline Phosphatase 53, Total Protein 5.6 L, Albumin 2.9 L, Globulin 2.7, Albumin/Globulin Ratio 1.1 12/28/21 06:40: POC Glucose 132 H D/C Instructions Discharge Diet: No restrictions Weight Bearing Status: Weight bearing as tolerated Call your doctor if you observe: Fever of 101 or Higher, Numbness or Tingling, Shortness of breath, Dizziness, Chest pain, Increased palpitations (irregular heartbeat) and Calf discomfort Please Follow Up With: Primary care provider When: Within the next two weeks. Meaningful Use Info Meaningful Use Diagnoses (Choose all that apply): None applicable Discharge Plan Admission Admit Date/Time: 12/27/21 13:13 Primary Reason for Your Visit: Abnormal labs Attending Provider: Kike Kang Primary Care Provider: Juan Gomes Consulting Providers: Senia Rodriguez Instructions Additional Instructions / Restrictions: Patient Problems: Altered Health Status related to Hospitalization Patient Goals: *Optimal Level of Health *Keep Appointments *Medication Compliance *Remain Safe Discharge Orders/Prescriptions Prescriptions: Continued omeprazole 40 mg capsule,delayed release(DR/EC) 40 mg PO DAILY RF: 0 gabapentin 800 mg tablet 800 mg PO QHS RF: 0 amlodipine 10 mg tablet 10 mg PO DAILY RF: 0 glimepiride 4 mg tablet 2 mg PO DAILY RF: 0 isosorbide dinitrate 5 mg tablet 5 mg PO BID RF: 0 Excedrin Extra Strength 250-250-65 mg Tablet 2 tab PO DAILY RF: 0 Discontinued lisinopril 30 mg tablet 30 mg PO DAILY RF: 0 Hold Instructions: Hold until instructed to resume by your primary care provider. ibuprofen 200 mg Capsule 400 mg PO DINNER RF: 0 Hold Instructions: Hold until instructed otherwise by your primary care provider. Can substitute with Tyelenol. Referrals / Follow Up: Juan Gomes MD [Primary Care Provider] - See Referral Note (Proceed to your scheduled appointment with Dr. Gomes on Sunday12/30/21. ) Disposition Disposition (needs filled in before D/C Order can be placed): Home, Self Care Documented by User: Dr. Kike Kang MD 12/28/21 13:49 Providers Date of Admission: 12/27/21 Reason For Visit: HYPERKALEMIA Medications at Discharge Home Medications Excedrin Extra Strength 2 tab PO DAILY 12/27/21 amlodipine 10 mg PO DAILY 12/27/21 gabapentin 800 mg PO QHS 12/27/21 glimepiride 2 mg PO DAILY 12/27/21 isosorbide dinitrate 5 mg PO BID 12/27/21 omeprazole 40 mg PO DAILY 12/27/21 Hospital Course Summary of Care Provided Minutes Spent on Discharge: 45 Hospital Course: This patient was seen in conjunction with Santana Braun PA-C. I have independently interviewed and examined the patient and reviewed pertinent historical, laboratory, and other data. Please refer to Santana Braun PA-C's note for details of this patient's presentation, findings, and recommendations. I have reviewed Santana Braun PA-C's note and concur with documented findings. In brief, patient is a 76-year-old gentleman sent to the hospital by primary care physician with abnormal labs. Patient was found to have hyperkalemia with potassium of 7.1. Admitted to a monitored bed for treatment. Patient was on lisinopril this was discontinued he was subsequently. Patient potassium at the time of discharge 5.3. Requisition was given for patient to have repeat potassium to be drawn on 12/30/2021 Physical Examination: GENERAL: cooperative HEENT: Atraumatic; EYES; Anicteric, Normal Conjunctiva NECK; supple, normal thyroid, RESPIRATORY: Diminished to auscultation CARDIOVASCULAR: Regular S1 S2, GI: soft, normoactive bowel sounds, : No Renal angle tenderness; EXTREMITIES: No edema, no clubbing, MUSCULOSKELETAL: no muscle wasting NEURO: Awake; no lateralizing signs. SKIN: No Rash PSYCH; Flat affect Assessment: 1. Hypokalemia 2. Essential potassium 3. Diabetes mellitus type 2 4. GERD 5. 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 Hospital course; as documented above Total time spent by myself and the advanced practice practitioner evaluating patient, reviewing labs, subsequent management decisions, discussion with patient as well as other providers 45 minutes ( 25 of which was spent by myself) ABG / Lab / Microbiology Data Result Diagrams: 12/28/21 05:25 12/28/21 05:25 Discharge Plan Admission Admit Date/Time: 12/27/21 13:13 Primary Reason for Your Visit: Abnormal labs Attending Provider: Kike Kang Primary Care Provider: Juan Gomes Consulting Providers: Senia Rodriguez Instructions Additional Instructions / Restrictions: Patient Problems: Altered Health Status related to Hospitalization Patient Goals: *Optimal Level of Health *Keep Appointments *Medication Compliance *Remain Safe Discharge Orders/Prescriptions Prescriptions: Continued omeprazole 40 mg capsule,delayed release(DR/EC) 40 mg PO DAILY RF: 0 gabapentin 800 mg tablet 800 mg PO QHS RF: 0 amlodipine 10 mg tablet 10 mg PO DAILY RF: 0 glimepiride 4 mg tablet 2 mg PO DAILY RF: 0 isosorbide dinitrate 5 mg tablet 5 mg PO BID RF: 0 Excedrin Extra Strength 250-250-65 mg Tablet 2 tab PO DAILY RF: 0 Discontinued lisinopril 30 mg tablet 30 mg PO DAILY RF: 0 Hold Instructions: Hold until instructed to resume by your primary care provider. ibuprofen 200 mg Capsule 400 mg PO DINNER RF: 0 Hold Instructions: Hold until instructed otherwise by your primary care provider. Can substitute with Tyelenol. Referrals / Follow Up: Juan Gomes MD [Primary Care Provider] - See Referral Note (Proceed to your scheduled appointment with Dr. Gomes on Sunday12/30/21. ) Disposition Disposition (needs filled in before D/C Order can be placed): Home, Self Care Charges/Coding Visit Charges Inpatient E&M: 03834 Disch Hosp
[2021-12-28 11:05] LABS: Bedside Glucose 187 mg/dL (74-106)
--- NOTE | 2021-12-28 11:10 | CASEMGMT ---
HARLEY HUMPHREY assessment: Face to Face with patient for initial transition planning/care coordination assessment. HARLEY HUMPHREY introduced self and role at [facility], pt voices understanding and consents to assessment. Pt is sitting up in bed in no distress on room air. Pt is A/Ox4 and answers all questions appropriately. Pt's is at bedside during assessment. Care providers, pharmacy, and demographics verified. Presentation: Pt sent in by PCP for elev K+ Admitting dx: Hyperkalemia PCP: Eliseo Specialists: FRANKLIN Farias; Derm; Ortho Preferred Pharmacy: [facility] [place] Insurance: MCR A/B, [employer] Prescription Benefit: MCR D Living Will/HPOA: Pt has LW/HPOA and is aware that they are not on file at [facility]. Pt states his , Meenu Aguila, is HPOA. LNOK: Meenu Aguila, /HPOA Living Arrangements: Pt lives with in 2 story home and states no concerns at home. Pt is independent with ADL's. Transportation: Pt drives self and states no transportation concerns. DME/HHC: Pt has a glucometer, walking boot, and automotive sales executive. Pt declines need for any further DME. Pt states no hx of HHC or SNF. Pt states no concerns with going home at time of discharge. Pt is retired. Pt does not smoke cigarettes or drink ETOH. Pt voices no further concerns/needs. CM to follow for any further discharge planning/needs. Advised pt to ask for CM if any further questions/concerns/needs arise, voices understanding. Pt Goal: Home Plan: [place] HARLEY HUMPHREY
--- NOTE | 2021-12-28 11:13 | PHA.DC.MR ---
Pharmacy Service has performed discharge medication reconciliation for this patient. The patient's discharge medication list was reviewed for discrepancies and discrepancies were resolved. Home Medications Excedrin Extra Strength 2 tab PO DAILY 12/27/21 amlodipine 10 mg PO DAILY 12/27/21 gabapentin 800 mg PO QHS 12/27/21 glimepiride 2 mg PO DAILY 12/27/21 ibuprofen 400 mg PO DINNER 12/27/21 isosorbide dinitrate 5 mg PO BID 12/27/21 lisinopril 30 mg PO DAILY 12/27/21 omeprazole 40 mg PO DAILY 12/27/21
== END 2021-12-28 13:11 | disposition home or self-care (01) | DRG 641 ==
LOC: ED 13:24 → PCU 12-28 06:51
PROVIDERS: Admitting Provider Family Medicine; Emergency Provider Emergency Medicine; PCP Family Medicine; Visit Provider Internal Medicine
DX: E87.5 Hyperkalemia (principal); E11.22 Type 2 diabetes mellitus with diabetic chronic kidney disease; I12.9 Hypertensive chronic kidney disease with stage 1 through stage 4 chronic kidney disease, or unspecified chronic kidney disease; E78.5 Hyperlipidemia, unspecified; D64.9 Anemia, unspecified; N18.32 Chronic kidney disease, stage 3b; K21.9 Gastro-esophageal reflux disease without esophagitis; M19.90 Unspecified osteoarthritis, unspecified site; Z79.84 Long term (current) use of oral hypoglycemic drugs; Z79.899 Other long term (current) drug therapy
CPT/HCPCS: 36415; 80048; 80053; 80061; 82962; 85025; 93005; 94640; 99284; J7030; J0610

== ENCOUNTER → 2021-12-27 | Outpatient (CLI) | payer MEDICARE, OTHER, SELFPAY ==
[2021-12-27 10:29] LABS: Anion Gap 3 (5-15); BUN 49 mg/dL (7-18); BUN/Creat Ratio 26.5 RATIO (10-20); Calcium,Total 9.2 mg/dL (8.5-10.1); Chloride 117 mmol/L (98-107); Cholesterol 183 mg/dL (200); Creatinine, Serum 1.85 mg/dL (0.70-1.30); EST Glomerular Filtration Rate 38 mL/min (>60); Est Glom Filt Rate - Afr Amer 46 mL/min (>60); Glucose 125 mg/dL (74-106); High Density Lipoprotein 28 mg/dL; Potassium 6.5 mmol/L (3.5-5.1); Sodium Level 141 mmol/L (136-145); Triglycerides 156 mg/dL; Very Low Density Lipoprotein 31 mg/dL (5-40)
== END | disposition home or self-care (01) ==
LOC: MFPLAB 09:12
PROVIDERS: PCP Nurse Practitioner Family; Visit Provider Family Medicine
DX: E11.21 Type 2 diabetes mellitus with diabetic nephropathy (principal)
CPT/HCPCS: 36415; 80048; 80061

== ENCOUNTER → 2021-12-30 | Outpatient (CLI) | payer MEDICARE, OTHER, SELFPAY ==
[2021-12-30 11:19] LABS: Anion Gap 5 (5-15); BUN 31 mg/dL (7-18); Calcium,Total 8.8 mg/dL (8.5-10.1); Chloride 113 mmol/L (98-107); Creatinine, Serum 1.35 mg/dL (0.70-1.30); EST Glomerular Filtration Rate 55 mL/min (>60); Est Glom Filt Rate - Afr Amer 66 mL/min (>60); Glucose 159 mg/dL (74-106); Potassium 4.5 mmol/L (3.5-5.1); Sodium Level 141 mmol/L (136-145); Thyroid Stim Hormone (TSH) 2.85 uIU/mL (0.358-3.74)
[2021-12-30 11:47] LABS: Vitamin B12 249 pg/mL (211-911)
== END | disposition home or self-care (01) ==
LOC: MFPLAB 08:37
PROVIDERS: PCP Family Medicine; Referring Provider Family Medicine; Visit Provider Family Medicine
DX: E87.5 Hyperkalemia (principal); E11.21 Type 2 diabetes mellitus with diabetic nephropathy
CPT/HCPCS: 36415; 80048; 82607; 84443

== ENCOUNTER → 2022-01-05 | Outpatient (CLI) | payer MEDICARE, OTHER, SELFPAY ==
[2022-01-05 10:22] LABS: Anion Gap 7 (5-15); BUN 31 mg/dL (7-18); BUN/Creat Ratio 24.6 RATIO (10-20); Calcium,Total 8.9 mg/dL (8.5-10.1); Chloride 109 mmol/L (98-107); Creatinine, Serum 1.26 mg/dL (0.70-1.30); EST Glomerular Filtration Rate 59 mL/min (>60); Est Glom Filt Rate - Afr Amer 72 mL/min (>60); Glucose 118 mg/dL (74-106); Potassium 5.3 mmol/L (3.5-5.1); Sodium Level 140 mmol/L (136-145)
== END | disposition home or self-care (01) ==
LOC: MFPLAB 08:29
PROVIDERS: PCP Family Medicine; Referring Provider Family Medicine; Visit Provider Family Medicine
DX: E11.69 Type 2 diabetes mellitus with other specified complication (principal)
CPT/HCPCS: 36415; 80048

== ENCOUNTER → 2022-02-03 | Outpatient (CLI) | payer MEDICARE, OTHER, SELFPAY ==
[2022-02-03 10:13] LABS: Anion Gap 6 (5-15); BUN 48 mg/dL (7-18); BUN/Creat Ratio 33.3 RATIO (10-20); Calcium,Total 9.2 mg/dL (8.5-10.1); Chloride 111 mmol/L (98-107); Creatinine, Serum 1.44 mg/dL (0.70-1.30); EST Glomerular Filtration Rate 51 mL/min (>60); Est Glom Filt Rate - Afr Amer 62 mL/min (>60); Glucose 133 mg/dL (74-106); Potassium 4.7 mmol/L (3.5-5.1); Sodium Level 141 mmol/L (136-145)
== END | disposition home or self-care (01) ==
LOC: MFPLAB 08:59
PROVIDERS: PCP Family Medicine; Referring Provider Family Medicine; Visit Provider Family Medicine
DX: E11.69 Type 2 diabetes mellitus with other specified complication (principal)
CPT/HCPCS: 36415; 80048

== ENCOUNTER → 2022-02-27 | Outpatient (CLI) | payer MEDICARE, OTHER, SELFPAY ==
[2022-02-27 09:58] LABS: Absolute Lymphocyte Count 0.95 X10^3/uL (0.83-4.51); Absolute Neutrophil Count 4.1 X10^3/uL (2.0-7.7); Basophil# 0.05 X10^3/uL; Basophil% 0.9 % (0-1); Eosinophil# 0.19 X10^3/uL; Eosinophils% 3.3 % (0-5); Hematocrit 40.9 % (40-54); Lymphocyte # 0.95 X10^3/ul (0.83-4.51); Lymphocyte % 16.3 % (19-41); Mean Corp Hgb Conc 31.8 g/dL (32-36); Mean Corpuscular Hgb 27.8 pg (27.0-32.0); Mean Corpuscular Volume 87.4 fL (80-94); Mean Platelet Vol. 10.3 fl (6.2-12.0); Monocyte# 0.49 X10^3/uL; Monocyte% 8.4 % (0-10); NRBC Flagged by Analyzer 0 % (0-5); Neutrophil # 4.11 X10^3/uL (2.7-7.7); Neutrophil % 70.6 % (47-70); Platelet Count 203 K/mm3 (150-450); RBC Distribution Width CV 13.8 % (11.6-14.6); RBC Distribution Width SD 43.8 fl (35.1-43.9); Red Blood Count 4.68 M/mm3 (4.6-6.2); White Blood Count 5.8 K/mm3 (4.4-11.0)
[2022-02-27 10:13] LABS: Prothrombin Time (Protime)PT. 12.6 SECONDS (11.7-14.9)
[2022-02-27 10:14] LABS: Partial Thromboplast Time 27.2 Seconds (24.1-36.2)
[2022-02-27 10:34] LABS: Anion Gap 5 (5-15); BUN 35 mg/dL (7-18); BUN/Creat Ratio 23.3 RATIO (10-20); Calcium,Total 9.5 mg/dL (8.5-10.1); Chloride 109 mmol/L (98-107); EST Glomerular Filtration Rate 49 mL/min (>60); Est Glom Filt Rate - Afr Amer 59 mL/min (>60); Ferritin 9 ng/mL (26-388); Glucose 123 mg/dL (74-106); Iron 37 ug/dL (65-175); Potassium 4.8 mmol/L (3.5-5.1); Sodium Level 140 mmol/L (136-145)
== END | disposition home or self-care (01) ==
LOC: MFPLAB 09:10
PROVIDERS: PCP Family Medicine; Visit Provider Family Medicine
DX: Z01.818 Encounter for other preprocedural examination (principal); E11.21 Type 2 diabetes mellitus with diabetic nephropathy; D64.9 Anemia, unspecified
CPT/HCPCS: 36415; 80048; 82728; 83540; 85025; 85610; 85730

== ENCOUNTER → 2022-05-02 | Outpatient (CLI) | payer MEDICARE, OTHER, SELFPAY ==
[2022-05-02 20:39] LABS: AST(SGOT) 16 U/L (15-37); Alanine Aminotransfer ALT/SGPT 26 U/L (16-61); Albumin, Serum 3.6 g/dL (3.2-5.0); Alkaline Phosphatase 75 U/L (45-117); Anion Gap 10 (5-15); BUN 44 mg/dL (7-18); BUN/Creat Ratio 22.6 RATIO (10-20); Calcium,Total 9.4 mg/dL (8.5-10.1); Chloride 112 mmol/L (98-107); Cholesterol 193 mg/dL (200); Creatinine, Serum 1.95 mg/dL (0.70-1.30); EST Glomerular Filtration Rate 36 mL/min (>60); Est Glom Filt Rate - Afr Amer 43 mL/min (>60); Globulin 3.5 g/dL (2.2-4.2); Glucose 111 mg/dL (74-106); High Density Lipoprotein 29 mg/dL; Potassium 4.8 mmol/L (3.5-5.1); Protein, Total 7.1 g/dL (6.4-8.2); Sodium Level 144 mmol/L (136-145); Triglycerides 177 mg/dL; Very Low Density Lipoprotein 35 mg/dL (5-40)
== END | disposition home or self-care (01) ==
LOC: MFPLAB 08:04
PROVIDERS: PCP Family Medicine; Referring Provider Family Medicine; Visit Provider Family Medicine
DX: E11.69 Type 2 diabetes mellitus with other specified complication (principal)
CPT/HCPCS: 36415; 80053; 80061

== ENCOUNTER → 2022-06-14 | Outpatient (CLI) | payer MEDICARE, OTHER, SELFPAY ==
[2022-06-14 18:41] LABS: Anion Gap 8 (5-15); BUN 38 mg/dL (7-18); BUN/Creat Ratio 22.4 RATIO (10-20); Calcium,Total 9.4 mg/dL (8.5-10.1); Chloride 110 mmol/L (98-107); EST Glomerular Filtration Rate 42 mL/min (>60); Est Glom Filt Rate - Afr Amer 51 mL/min (>60); Glucose 123 mg/dL (74-106); Potassium 4.4 mmol/L (3.5-5.1); Sodium Level 141 mmol/L (136-145); Vitamin B12 1198 pg/mL (211-911)
== END | disposition home or self-care (01) ==
LOC: MFPLAB 17:10
PROVIDERS: PCP Family Medicine; Referring Provider Family Medicine; Visit Provider Family Medicine
DX: N18.30 Chronic kidney disease, stage 3 unspecified (principal); E53.8 Deficiency of other specified B group vitamins
CPT/HCPCS: 36415; 80048; 82607

== ENCOUNTER → 2022-08-02 | Outpatient (CLI) | payer MEDICARE, OTHER, SELFPAY ==
[2022-08-02 14:08] LABS: Anion Gap 6 (5-15); BUN 26 mg/dL (7-18); BUN/Creat Ratio 17.8 RATIO (10-20); Chloride 111 mmol/L (98-107); Creatinine, Serum 1.46 mg/dL (0.70-1.30); EST Glomerular Filtration Rate 50 mL/min (>60); Est Glom Filt Rate - Afr Amer 61 mL/min (>60); Glucose 175 mg/dL (74-106); Potassium 4.8 mmol/L (3.5-5.1); Sodium Level 142 mmol/L (136-145)
[2022-08-02 14:18] LABS: Vitamin D,25 Hydroxy 36.5 ng/mL
== END | disposition home or self-care (01) ==
LOC: MFPLAB 09:23
PROVIDERS: PCP Family Medicine; Referring Provider Family Medicine; Visit Provider Family Medicine
DX: E11.22 Type 2 diabetes mellitus with diabetic chronic kidney disease (principal); N18.30 Chronic kidney disease, stage 3 unspecified
CPT/HCPCS: 36415; 80048; 82306

== ENCOUNTER → 2022-10-31 | Outpatient (CLI) | payer MEDICARE, OTHER, SELFPAY ==
[2022-10-31 12:59] LABS: PSA,Total - Annual Screen 2.35 ng/mL (0.00-4.00)
[2022-10-31 13:11] LABS: Anion Gap 6 (5-15); BUN 42 mg/dL (7-18); BUN/Creat Ratio 24.7 RATIO (10-20); Calcium,Total 9.8 mg/dL (8.5-10.1); Chloride 112 mmol/L (98-107); EST Glomerular Filtration Rate 42 mL/min (>60); Est Glom Filt Rate - Afr Amer 51 mL/min (>60); Glucose 167 mg/dL (74-106); Potassium 5.4 mmol/L (3.5-5.1); Sodium Level 142 mmol/L (136-145)
== END | disposition home or self-care (01) ==
LOC: MFPLAB 09:09
PROVIDERS: PCP Family Medicine; Referring Provider Family Medicine; Visit Provider Family Medicine
DX: Z12.5 Encounter for screening for malignant neoplasm of prostate (principal); N18.30 Chronic kidney disease, stage 3 unspecified
CPT/HCPCS: 36415; 80048; 84153; G0103

== ENCOUNTER → 2022-11-20 | Outpatient (CLI) | payer MEDICARE, OTHER, SELFPAY ==
[2022-11-20 12:45] LABS: Anion Gap 4 (5-15); BUN 58 mg/dL (7-18); BUN/Creat Ratio 27.9 RATIO (10-20); Calcium,Total 9.4 mg/dL (8.5-10.1); Chloride 109 mmol/L (98-107); Creatinine, Serum 2.08 mg/dL (0.70-1.30); EST Glomerular Filtration Rate 33 mL/min (>60); Est Glom Filt Rate - Afr Amer 40 mL/min (>60); Glucose 239 mg/dL (74-106); Potassium 5.2 mmol/L (3.5-5.1); Sodium Level 136 mmol/L (136-145)
== END | disposition home or self-care (01) ==
LOC: MFPLAB 09:32
PROVIDERS: PCP Family Medicine; Visit Provider Family Medicine
DX: E13.22 Other specified diabetes mellitus with diabetic chronic kidney disease (principal)
CPT/HCPCS: 36415; 80048

== ENCOUNTER → 2022-12-01 | Outpatient (CLI) | payer MEDICARE, OTHER, SELFPAY ==
[2022-12-01 10:37] LABS: Anion Gap 5 (5-15); BUN 60 mg/dL (7-18); BUN/Creat Ratio 26.9 RATIO (10-20); Calcium,Total 9.5 mg/dL (8.5-10.1); Chloride 108 mmol/L (98-107); Creatinine, Serum 2.23 mg/dL (0.70-1.30); EST Glomerular Filtration Rate 31 mL/min (>60); Est Glom Filt Rate - Afr Amer 37 mL/min (>60); Glucose 301 mg/dL (74-106); Potassium 5.4 mmol/L (3.5-5.1); Sodium Level 137 mmol/L (136-145)
== END | disposition home or self-care (01) ==
LOC: MFPLAB 09:07
PROVIDERS: PCP Family Medicine; Visit Provider Family Medicine
DX: N18.30 Chronic kidney disease, stage 3 unspecified (principal)
CPT/HCPCS: 36415; 80048

== ENCOUNTER → 2022-12-18 | Outpatient (CLI) | payer MEDICARE, OTHER, SELFPAY ==
[2022-12-18 10:33] LABS: Anion Gap 4 (5-15); BUN 56 mg/dL (7-18); Calcium,Total 9.4 mg/dL (8.5-10.1); Chloride 114 mmol/L (98-107); EST Glomerular Filtration Rate 35 mL/min (>60); Est Glom Filt Rate - Afr Amer 42 mL/min (>60); Glucose 95 mg/dL (74-106); Potassium 4.8 mmol/L (3.5-5.1); Sodium Level 142 mmol/L (136-145)
== END | disposition home or self-care (01) ==
LOC: MFPLAB 08:24
PROVIDERS: PCP Family Medicine; Visit Provider Family Medicine
DX: E87.5 Hyperkalemia (principal)
CPT/HCPCS: 36415; 80048

== ENCOUNTER → 2023-02-05 | Outpatient (CLI) | payer MEDICARE, OTHER, SELFPAY ==
[2023-02-05 15:26] LABS: Anion Gap 7 (5-15); BUN 56 mg/dL (7-18); BUN/Creat Ratio 25.7 RATIO (10-20); Calcium,Total 9.5 mg/dL (8.5-10.1); Chloride 114 mmol/L (98-107); Creatinine, Serum 2.18 mg/dL (0.70-1.30); EST Glomerular Filtration Rate 32 mL/min (>60); Est Glom Filt Rate - Afr Amer 38 mL/min (>60); Glucose 130 mg/dL (74-106); Potassium 5.8 mmol/L (3.5-5.1); Sodium Level 143 mmol/L (136-145)
== END | disposition home or self-care (01) ==
LOC: MFPLAB 11:57
PROVIDERS: PCP Family Medicine; Visit Provider Family Medicine
DX: N18.30 Chronic kidney disease, stage 3 unspecified (principal)
CPT/HCPCS: 36415; 80048

== ENCOUNTER 2023-03-07 09:21 | Outpatient (CLI) | payer MEDICARE, OTHER, SELFPAY ==
[2023-03-07 11:24] LABS: Anion Gap 4 (5-15); BUN 46 mg/dL (7-18); BUN/Creat Ratio 24.2 RATIO (10-20); Calcium,Total 9.1 mg/dL (8.5-10.1); Chloride 110 mmol/L (98-107); EST Glomerular Filtration Rate 37 mL/min (>60); Est Glom Filt Rate - Afr Amer 45 mL/min (>60); Glucose 138 mg/dL (74-106); Potassium 5.2 mmol/L (3.5-5.1); Sodium Level 142 mmol/L (136-145)
== END 2023-03-07 23:59 | disposition home or self-care (01) ==
LOC: MFPLAB 09:21
PROVIDERS: PCP Family Medicine; Visit Provider Family Medicine
DX: N18.30 Chronic kidney disease, stage 3 unspecified (principal)
CPT/HCPCS: 36415; 80048

== ENCOUNTER → 2023-05-23 | Outpatient (CLI) | payer MEDICARE, OTHER, SELFPAY ==
--- NOTE | 2023-05-23 06:34 | ECHOD_ITS ---
Reason For Study: Arrhythmia Procedure This was a 2D Doppler, Color Flow transthoracic echocardiogram. Exam performed in department. Left Ventricle Normal LV size. Left ventricular systolic function is normal. The estimated ejection fraction is 60 %. No regional wall motion abnormalities noted. Right Ventricle Normal RV size. Normal systolic function. Atria Normal left atrium. Normal right atrium. Hypermobile atrial septum. Bubble contrast study negative for right to left interatrial shunt. Mitral Valve Normal mitral valve. Tricuspid Valve Normal tricuspid valve. Mild (1+) tricuspid valve insufficiency. Pulmonary artery systolic pressure is 38 mmHg. Aortic Valve Normal aortic valve. Trisinus/trileaflet aortic valve. Pulmonic Valve Normal pulmonic valve. Great Vessels Normal aortic root. Pericardium/Pleural No pericardial effusion. Medication Performed a rapid injection of agitated mix of 9 cc saline and 1cc air to assess for atrial septal defect. MMode/2D Measurements & Calculations LVIDd: 5.4 cm IVSd: 0.88 cm Ao root diam: 3.3 cm LVIDs: 3.2 cm LVPWd: 0.77 cm RVDd: 3.0 cm FS: 40.6 % LAV(MOD-bp): 42.2 ml LVAd ap4: 27.9 cm2 SV(MOD-sp4): 50.8 ml LAV(MOD-bp) Indexed: 20.8 ml/m2 LVLd ap4: 7.9 cm LAV(MOD-sp2): 45.1 ml EDV(MOD-sp4): 81.5 ml LAV(MOD-sp4): 37.2 ml EDV(sp4-el): 84.0 ml LVAs ap4: 14.7 cm2 LVLs ap4: 6.1 cm ESV(MOD-sp4): 30.7 ml ESV(sp4-el): 30.0 ml EF(MOD-sp4): 62.4 % EF(sp4-el): 64.3 % SV(sp4-el): 54.1 ml LA A4 area: 15.2 cm2 LA dimension(2D): 3.8 cm RA A4 area: 9.9 cm2 TAPSE: 2.1 cm Time Measurements MV dec time: 0.26 sec Doppler Measurements & Calculations MV E max ranulfo: 63.7 cm/sec Lat Peak E' Ranulfo: 12.2 cm/sec Med Peak E' Ranulfo: 9.2 cm/sec MV A max ranulfo: 86.9 cm/sec E/E' lat: 5.2 E/E' med: 7.0 MV E/A: 0.73 MV dec slope: 240.8 cm/sec2 Ao V2 max: 134.3 cm/sec LV V1 max: 107.6 cm/sec Ao max P.2 mmHg LV V1 max P.6 mmHg Ao V2 mean: 91.5 cm/sec LV V1 mean P.3 mmHg Ao mean P.8 mmHg LV V1 mean: 70.3 cm/sec Ao V2 VTI: 29.3 cm LV V1 VTI: 24.1 cm AV (velocity ratio): 0.82 PA V2 max: 92.4 cm/sec TR max ranulfo: 292.2 cm/sec TR max P.1 mmHg ECHO/Echo Complete Interpretation Summary Hypermobile atrial septum. Normal LV size. Left ventricular systolic function is normal. The estimated ejection fraction is 60 %. Bubble contrast study negative for right to left interatrial shunt. Pulmonary artery systolic pressure is 38 mmHg. Ordering Physician: Aryan Mcgraw Referring Physician: Sudarshan Gomes Performed By: Rose Chapman, RDCS, RVT
--- NOTE | 2023-05-23 16:18 | STRESSREP ---
Stress Test Report Exercise myocardial perfusion stress test. 77-year-old man with a history of cardiac dysrhythmia. Resting EKG demonstrates sinus bradycardia with a rate of 58 bpm normal intervals are noted. The patient exercised according to the regular Jeremiah protocol for total duration of 8 minutes completing 2 minutes into stage III of the Jeremiah protocol. The maximum heart rate attained was 131 bpm which was 90% of max impacted heart rate the maximum workload was 10.4 metabolic equivalents. At rest there were no ST or T wave changes noted to suggest ischemia and at peak exercise upsloping ST changes were noted which did not meet the criteria for ischemia. Premature ventricular complexes were noted especially during recovery. No runs were noted. The peak blood pressure was 202/80 mmHg which was a normal blood pressure response to exercise and the rate-pressure product was 22,800. Myocardial perfusion protocol. 14.2 mCi of technetium 99m sestamibi was injected at rest. Patient was exercised according to regular Jeremiah protocol for 8 minutes and at peak exercise 4 4.7 mCi of technetium 99m sestamibi was injected stress images were obtained stress and rest images were reconstructed and compared in the short axis vertical long and horizontal long axis. Perfusion SPECT analysis: Review of the stress images demonstrate normal uptake of tracer noted in all areas of the myocardium. The resting images similarly demonstrate normal uptake of tracer noted in all areas of the myocardium. No reversibility was noted suggest ischemia. Conclusion: Normal exercise myocardial perfusion stress test at a high workload. Normal chronotropic response noted.
== END | disposition home or self-care (01) ==
LOC: CVS 06:33
PROVIDERS: PCP Family Medicine; Referring Provider Internal Medicine Cardiovascular Disease; Visit Provider Internal Medicine Cardiovascular Disease
DX: R00.1 Bradycardia, unspecified (principal); R94.31 Abnormal electrocardiogram [ECG] [EKG]
CPT/HCPCS: 78452; 93017; 93306; A9500; A4216

== ENCOUNTER → 2023-06-06 | Outpatient (CLI) | payer MEDICARE, OTHER, SELFPAY ==
[2023-06-06 11:09] LABS: Anion Gap 4 (5-15); BUN 30 mg/dL (7-18); BUN/Creat Ratio 20.5 RATIO (10-20); Calcium,Total 8.7 mg/dL (8.5-10.1); Chloride 114 mmol/L (98-107); Cholesterol 177 mg/dL (200); Creatinine, Serum 1.46 mg/dL (0.70-1.30); EST Glomerular Filtration Rate 50 mL/min (>60); Est Glom Filt Rate - Afr Amer 60 mL/min (>60); Glucose 101 mg/dL (74-106); High Density Lipoprotein 31 mg/dL; Magnesium 2.2 mg/dL (1.6-2.6); Potassium 4.7 mmol/L (3.5-5.1); Sodium Level 144 mmol/L (136-145); Thyroid Stim Hormone (TSH) 2.05 uIU/mL (0.358-3.74); Triglycerides 112 mg/dL; Very Low Density Lipoprotein 22 mg/dL (5-40)
== END | disposition home or self-care (01) ==
LOC: MTLAB 09:20
PROVIDERS: PCP Family Medicine; Referring Provider Internal Medicine Cardiovascular Disease; Visit Provider Internal Medicine Cardiovascular Disease
DX: E11.9 Type 2 diabetes mellitus without complications (principal); E78.5 Hyperlipidemia, unspecified; I10 Essential (primary) hypertension
CPT/HCPCS: 36415; 80048; 80061; 83735; 84443

== ENCOUNTER → 2023-09-20 | Outpatient (CLI) | payer MEDICARE, OTHER, SELFPAY ==
--- OUTSIDE RECORDS SUMMARY | 2023-09-20 08:30 | XMS RPT_ITS | CCD ---
Author Name Unknown Address [address] [place] [address] Organization [facility] Care Team Providers Care Communications Department Head Name Role Phone Vinay Degroot Unavailable Rosemary Bernabe Unavailable Rosemary Bernabe Unavailable FAM SHABAZZ Attending Unavailable FAM SHABAZZ Primary Care Unavailable FAM SHABAZZ Admitting Unavailable Medications Completed/Discontinued Medications Medication Drug Class(es) Dates Sig (Normalized) Sig (Original) amLODIPine 10 mg / atorvastatin 10 mg oral tablet (4 sources) Dihydropyridine Calcium Channel Jory, HMG-CoA Reductase Inhibitor Start: 10-25-2016 AMLODIPINE-ATORVA STATIN 10-10 MG TABS AMLODIPINE-ATORVA STATIN [id number] Vinay Degroot gabapentin 300 mg oral capsule (4 sources) Anti-epileptic Agent Start: 10-25-2016 GABAPENTIN 300 MG CAPS GABAPENTIN [id number] Vinay Degroot glimepiride 2 mg oral tablet (4 sources) Sulfonylurea Start: 10-25-2016 GLIMEPIRIDE 2 MG TABS GLIMEPIRIDE [id number] Vinay Degroot SITAGLIPTIN-METFORM IN HCL (4 sources) Biguanide, Dipeptidyl Peptidase 4 Inhibitor Start: 10-25-2016 JANUMET 50-1000 MG TABS SITAGLIPTIN-METFO RMIN HCL [id number] Vinay Degroot Problems Active Problems Problem Classification Problem Date Documented Da te Episodic/Chronic Diabetes mellitus without complication (1 source) Type 2 diabetes mellitus without complications; Translations: [Type 2 diabetes mellitus without complications] Onset: 12-15-2022 Chronic E Codes: Cut/pierceb (1 source) Contact with powered garden and outdoor hand tools and machinery, initial encounter; Translations: [Contact with powered garden and outdoor hand tools and machinery, initial encounter] Onset: 12-15-2022 Episodic E Codes: Unspecified (1 source) Activity, other specified; Translations: [Activity, other specified] Onset: 12-15-2022 Episodic Essential hypertension (1 source) Essential (primary) hypertension; Translations: [Essential (primary) hypertension] Onset: 12-15-2022 Chronic Open wounds of extremities (3 sources) Laceration without foreign body, left knee, initial encounter; Translations: [Laceration without foreign body, left knee, initial encounter] Onset: 12-15-2022 Episodic Osteoarthritis (4 sources) Idiopathic osteoarthritis; Translations: [Primary osteoarthritis, left shoulder] Onset: 10-25-2016 11-02-2016 Chronic Other aftercare (1 source) intermediate (current) use of insulin; Translations: [tank terminal gauger (current) use of insulin] Onset: 12-15-2022 Episodic Other aftercare (1 source) intermediate (current) use of aspirin; Translations: [intermediate (current) use of aspirin] Onset: 12-15-2022 Episodic Other aftercare (1 source) Other assisted (current) drug therapy; Translations: [Other intermediate manager (current) drug therapy] Onset: 12-15-2022 Episodic Past or Other Problems Problem Classification Problem Date Documented Da te Episodic/Chronic Other non-traumatic joint disorders (4 sources) Pain in left shoulder; Translations: [Pain in left shoulder] Onset: 10-25-2016 10-25-2016 Episodic Results Test Name Value Interpretation Reference Range Facil it Vital Signs Date Time Vital Sign Value Performing Clinician Jaime malhotra 10-25-2016 12:53-0400 BMI (Body Mass Index) 28.48 kg/m2 [facility] Work Phone: 10-25-2016 12:53-0400 Height 182.88 cm [facility] Work Phone: 10-25-2016 12:53-0400 Weight 95.26 kg [facility] Work Phone: Encounters Encounter Date Encounter Type Care Provider Facility Start: 12-15-2022 End: 12-15-2022 Emergency department patient visit FAM SHABAZZ [facility] Procedures Date Procedure Procedure Detail Performing Clinician Start: 04-04-2017 End: 04-13-2017 Drain/inject, joint/bursa Vinay Degroot Work Phone: Start: 10-25-2016 End: 11-02-2016 Drain/inject, joint/bursa Vinay Degroot Work Phone: Plan of Treatment Date Care Activity Detail Author Start: 04-04-2017 End: 04-04-2017 Appointment Appointment [facility] Work Phone: Start: 04-04-2017 End: 04-04-2017 Physical Therapy General Physical Therapy [facility], [address] [place] [address], [id number] [facility] Work Phone: Start: 10-25-2016 End: 10-25-2016 X-ray exam of shoulder X-Ray, Shoulder [facility] Work Phone: Payers Date Payer Category Payer Unknown [id number] Medicare [id number] Medicare [id number] Unknown [id number] Summary Purpose Family History No Family History Records Found Advance Directives No Advanced Directives Records Found Additional Source Comments (unrecognized sect ion and content) No Status Records Found INFORMATION SOURCE (unrecogn ized section and content) FOR RECORDS PERTAINING TO PATIENTS WHO ARE OR HAVE BEEN ENROLLED IN A CHEMICAL DEPENDENCY/SUBSTANCEABUSE PROGRAM, SOME INFORMATION MAY BE OMITTED. This clinical summary was aggregated from multiple sources. Caution should be exercised in using it in the provision of clinical care. This summary normalizes information from multiple sources, and as a consequence, information in this document may materially change the coding, format and clinical context of patient data. In addition, data may be omitted in some cases. CLINICAL DECISIONS SHOULD BE BASED ON THE PRIMARY CLINICAL RECORDS. [employer] provides no warranty or guarantee of the accuracy or completeness of information in this document.
[2023-09-20 11:13] LABS: Anion Gap 4 (5-15); BUN 33 mg/dL (7-18); BUN/Creat Ratio 22.9 RATIO (10-20); Calcium,Total 9.1 mg/dL (8.5-10.1); Chloride 114 mmol/L (98-107); Creatinine, Serum 1.44 mg/dL (0.70-1.30); EST Glomerular Filtration Rate 51 mL/min (>60); Est Glom Filt Rate - Afr Amer 61 mL/min (>60); Glucose 122 mg/dL (74-106); Potassium 4.4 mmol/L (3.5-5.1); Sodium Level 142 mmol/L (136-145)
== END | disposition home or self-care (01) ==
LOC: MFPLAB 08:15
PROVIDERS: PCP Family Medicine; Visit Provider Family Medicine
DX: R00.1 Bradycardia, unspecified (principal)
CPT/HCPCS: 36415; 80048

== ENCOUNTER → 2024-01-11 | Outpatient (CLI) | payer MEDICARE, OTHER, SELFPAY ==
[2024-01-11 10:43] LABS: AST(SGOT) 20 U/L (15-37); Alanine Aminotransfer ALT/SGPT 30 U/L (16-61); Albumin, Serum 3.5 g/dL (3.2-5.0); Alkaline Phosphatase 97 U/L (45-117); Bilirubin, Direct 0.13 mg/dL (0.00-0.30); Cholesterol 139 mg/dL (200); Globulin 3.9 g/dL (2.2-4.2); High Density Lipoprotein 28 mg/dL; Protein, Total 7.4 g/dL (6.4-8.2); Triglycerides 115 mg/dL; Very Low Density Lipoprotein 23 mg/dL (5-40)
== END | disposition home or self-care (01) ==
LOC: MTLAB 08:18
PROVIDERS: PCP Family Medicine; Referring Provider Internal Medicine Cardiovascular Disease; Visit Provider Internal Medicine Cardiovascular Disease
DX: E78.00 Pure hypercholesterolemia, unspecified (principal)
CPT/HCPCS: 36415; 80061; 80076

== ENCOUNTER → 2024-02-27 | Outpatient (CLI) | payer MEDICARE, OTHER, SELFPAY ==
[2024-02-27 12:43] LABS: Anion Gap 7 (5-15); BUN 45 mg/dL (7-18); Calcium,Total 9.2 mg/dL (8.5-10.1); Chloride 110 mmol/L (98-107); Creatinine, Serum 1.61 mg/dL (0.70-1.30); EST Glomerular Filtration Rate 45 mL/min (>60); Est Glom Filt Rate - Afr Amer 54 mL/min (>60); Glucose 72 mg/dL (74-106); Potassium 4.8 mmol/L (3.5-5.1); Sodium Level 141 mmol/L (136-145); Thyroid Stim Hormone (TSH) 2.33 uIU/mL (0.358-3.74)
[2024-02-27 14:45] LABS: Vitamin B12 603 pg/mL (211-911)
== END | disposition home or self-care (01) ==
LOC: MFPLAB 08:47
PROVIDERS: PCP Family Medicine; Visit Provider Family Medicine
DX: E11.22 Type 2 diabetes mellitus with diabetic chronic kidney disease (principal); E53.8 Deficiency of other specified B group vitamins; N18.9 Chronic kidney disease, unspecified
CPT/HCPCS: 36415; 80048; 82607; 84443

== ENCOUNTER → 2024-04-02 | Outpatient (CLI) | payer MEDICARE, OTHER, SELFPAY ==
[2024-04-02 10:33] LABS: Vitamin B12 708 pg/mL (211-911)
[2024-04-02 10:39] LABS: Anion Gap 4 (5-15); BUN 34 mg/dL (7-18); BUN/Creat Ratio 18.9 RATIO (10-20); Calcium,Total 9.8 mg/dL (8.5-10.1); Chloride 109 mmol/L (98-107); EST Glomerular Filtration Rate 39 mL/min (>60); Est Glom Filt Rate - Afr Amer 47 mL/min (>60); Glucose 110 mg/dL (74-106); Potassium 4.2 mmol/L (3.5-5.1); Sodium Level 141 mmol/L (136-145)
== END | disposition home or self-care (01) ==
LOC: MTLAB 07:56
PROVIDERS: PCP Family Medicine; Referring Provider Family Medicine; Visit Provider Family Medicine
DX: E53.8 Deficiency of other specified B group vitamins (principal); E11.22 Type 2 diabetes mellitus with diabetic chronic kidney disease; N18.9 Chronic kidney disease, unspecified
CPT/HCPCS: 36415; 80048; 82607; 84443

== ENCOUNTER → 2024-09-23 | Outpatient (CLI) | payer MEDICARE, OTHER, SELFPAY ==
[2024-09-23 15:28] LABS: Hematocrit 45.5 % (40-54); Mean Corp Hgb Conc 30.8 g/dL (32-36); Mean Corpuscular Hgb 25.7 pg (27.0-32.0); Mean Corpuscular Volume 83.6 fL (80-94); Mean Platelet Vol. 10.7 fl (6.2-12.0); Platelet Count 195 K/mm3 (150-450); RBC Distribution Width CV 14.1 % (11.6-14.6); RBC Distribution Width SD 42.6 fl (35.1-43.9); Red Blood Count 5.44 M/mm3 (4.6-6.2); White Blood Count 5.6 K/mm3 (4.4-11.0)
[2024-09-23 15:34] LABS: PTHIN 107.7 pg/mL (18.4-80.1)
[2024-09-23 16:38] LABS: Anion Gap 7 (5-15); BUN 42 mg/dL (7-18); BUN/Creat Ratio 29.2 RATIO (10-20); Calcium,Total 9.3 mg/dL (8.5-10.1); Chloride 108 mmol/L (98-107); Creatinine, Serum 1.44 mg/dL (0.70-1.30); EST Glomerular Filtration Rate 51 mL/min (>60); Est Glom Filt Rate - Afr Amer 61 mL/min (>60); Glucose 161 mg/dL (74-106); Iron 46 ug/dL (65-175); Potassium 4.4 mmol/L (3.5-5.1); Sodium Level 139 mmol/L (136-145)
[2024-09-23 22:02] LABS: Vitamin D,25 Hydroxy 34.8 ng/mL
== END | disposition home or self-care (01) ==
LOC: MFPLAB 11:43
PROVIDERS: PCP Family Medicine; Referring Provider Family Medicine; Visit Provider Family Medicine
DX: N18.30 Chronic kidney disease, stage 3 unspecified (principal)
CPT/HCPCS: 36415; 80048; 82306; 83540; 83970; 85027

== ENCOUNTER → 2025-01-15 | Outpatient (CLI) | payer MEDICARE, OTHER, SELFPAY ==
[2025-01-15 10:03] LABS: PTHIN 53 pg/mL (11-61)
[2025-01-15 10:23] LABS: Anion Gap 12 (5-15); BUN 40 mg/dL (4-19); Calcium,Total 9.7 mg/dL (7.6-11.0); Carbon Dioxide 25.4 mmol/L (21.0-32.0); Chloride 106 mmol/L (98-108); Creatinine, Serum 1.65 mg/dL (0.70-1.20); EST Glomerular Filtration Rate 43 (>60); Glucose 146 mg/dL (70-99); Potassium 5.3 mmol/L (3.3-5.1); Sodium Level 143 mmol/L (133-145); Vitamin D,25 Hydroxy 34.7 ng/mL (30-100)
== END | disposition home or self-care (01) ==
LOC: LAB 09:04
PROVIDERS: PCP Family Medicine; Referring Provider Family Medicine; Visit Provider Family Medicine
DX: N18.30 Chronic kidney disease, stage 3 unspecified (principal)
CPT/HCPCS: 36415; 80048; 82306; 83970

== ENCOUNTER → 2025-01-16 | Outpatient (CLI) | payer MEDICARE, OTHER, SELFPAY ==
[2025-01-16 18:08] LABS: Anion Gap 13 (5-15); BUN 41 mg/dL (4-19); Calcium,Total 9.8 mg/dL (7.6-11.0); Carbon Dioxide 24.8 mmol/L (21.0-32.0); Chloride 102 mmol/L (98-108); Creatinine, Serum 1.63 mg/dL (0.70-1.20); EST Glomerular Filtration Rate 43 (>60); Glucose 200 mg/dL (70-99); Potassium 4.7 mmol/L (3.3-5.1); Sodium Level 140 mmol/L (133-145)
== END | disposition home or self-care (01) ==
LOC: MFPLAB 15:38
PROVIDERS: PCP Family Medicine; Referring Provider Family Medicine; Visit Provider Family Medicine
DX: N18.30 Chronic kidney disease, stage 3 unspecified (principal)
CPT/HCPCS: 36415; 80048

== ENCOUNTER → 2025-03-24 | Outpatient (CLI) | payer MEDICARE, OTHER, SELFPAY ==
[2025-03-24 16:08] LABS: Creatinine, Urine (random) 122.00 mg/dL (39.00-259.00); Microalbumin,Random Urine 14.7 mg/L (<20 mg/L)
== END | disposition home or self-care (01) ==
LOC: LABSPEC 13:40
PROVIDERS: PCP Family Medicine; Referring Provider Family Medicine; Visit Provider Family Medicine
DX: E11.22 Type 2 diabetes mellitus with diabetic chronic kidney disease (principal); N18.30 Chronic kidney disease, stage 3 unspecified; I12.9 Hypertensive chronic kidney disease with stage 1 through stage 4 chronic kidney disease, or unspecified chronic kidney disease
CPT/HCPCS: 82043; 82570

== ENCOUNTER → 2025-06-09 | Outpatient (CLI) | payer MEDICARE, OTHER, SELFPAY ==
[2025-06-09 12:34] LABS: Hematocrit 47.6 % (40-54); Hemoglobin 15.4 g/dL (13.0-16.5); Mean Corp Hgb Conc 32.4 g/dL (32-36); Mean Corpuscular Volume 85.2 fL (80-94); Mean Platelet Vol. 10.2 fl (6.2-12.0); Platelet Count 167 K/mm3 (150-450); RBC Distribution Width CV 16.1 % (11.6-14.6); RBC Distribution Width SD 50.5 fl (35.1-43.9); Red Blood Count 5.59 M/mm3 (4.6-6.2); White Blood Count 5.1 K/mm3 (4.4-11.0)
[2025-06-09 13:18] LABS: Ferritin 30 ng/mL (37-417); Iron 81 ug/dL (65-175); Iron Binding Capacity,Total 345 ug/dL (250-450); Iron Binding Capacity,Unsat 264 ug/dL (228-428); Vitamin B12 577 pg/mL (180-914)
[2025-06-09 13:23] LABS: FOLATES,SERUM (FOLIC ACID) 18.70 ng/mL (4.60-34.80)
[2025-06-11 12:08] LABS: Vitamin D 1,25-Dihydroxy 29.8 pg/mL (24.8-81.5)
[2025-06-17 10:08] LABS: Testosterone, % Free 2.72 % (1.50-4.20); Testosterone, Free 7.32 ng/dL (5.00-21.00); Zinc, Plasma or Serum 72 ug/dL (44-115)
== END | disposition home or self-care (01) ==
LOC: MTLAB 09:23
PROVIDERS: PCP Family Medicine; Referring Provider Dermatology; Visit Provider Dermatology
DX: L65.9 Nonscarring hair loss, unspecified (principal); K92.1 Melena
CPT/HCPCS: 36415; 82607; 82627; 82652; 82728; 82746; 83540; 83550; 84402; 84403; 84439; 84443; 84630; 85027; 86038; 82626

== ENCOUNTER → 2025-08-04 | Outpatient (CLI) | payer MEDICARE, OTHER, SELFPAY | END | disposition home or self-care (01) | LOC: LABSPEC 11:56 | PROVIDERS: PCP Family Medicine; Referring Provider Dermatology; Visit Provider Dermatology | DX: L65.9 Nonscarring hair loss, unspecified (principal); K92.1 Melena | CPT/HCPCS: 82274 ==